=== PATIENT | female | born 1995 | race Hispanic/Latino ===

== ENCOUNTER 2018-03-17 16:03 | Emergency (ER) | payer SELFPAY ==
[2018-03-17] MEDS ORDERED: Dexamethasone 4 mg/ml Vial ONE ×2 (18:17)
[2018-03-17] MEDS ORDERED: Acetaminophen 500 MG TAB ONE (18:17)
== END 2018-03-17 18:51 | disposition home or self-care (01) ==
LOC: ERS 16:03
DX: B34.9 Viral infection, unspecified (principal); F41.9 Anxiety disorder, unspecified
CPT/HCPCS: 87081; 87430; 99284; J1100